=== PATIENT | male | born 1970 | race African-American/Black ===

== ENCOUNTER 2018-03-25 20:11 | Emergency (ER) | payer OTHER | END 2018-03-25 20:35 | disposition home or self-care (01) | LOC: ERS 20:11 | DX: Z02.89 Encounter for other administrative examinations (principal); E03.9 Hypothyroidism, unspecified; I10 Essential (primary) hypertension; F17.210 Nicotine dependence, cigarettes, uncomplicated | CPT/HCPCS: 99283 ==

== ENCOUNTER 2018-08-19 09:02 | Emergency (ER) | payer OTHER ==
--- NOTE | 2018-08-19 09:51 | CT ---
CT OF THE BRAIN WITHOUT CONTRAST: Date: 08/19/18 INDICATION: History of bradycardia and hypothermia, found unresponsive at [facility]. COMPARISON: Prior CT of the brain dated 04/24/16. FINDINGS: No acute infarct, hemorrhage, or hydrocephalus is present. Septum pellucidum and third ventricle are midline. The skull and extracranial soft tissues are unremarkable appearing. IMPRESSION: No acute intracranial abnormality. POS: [facility]
[2018-08-19 10:21] LABS: Hemoglobin 17.2 g/dL (14.0-18.0); Mean Corpuscular HGB CONC 32.1 g/dL (32.0-36.0); Mean Corpuscular Volume 96.6 fL (78.0-98.0); Mean Platelet Volume 8.4 fL (7.4-10.4); Platelet Count 171 thou/uL (130-400); RBC Distribution Width 13.2 % (11.5-14.5); Red Blood Cell (RBC) Count 5.56 mill/uL (4.70-6.10); White Blood Cell (WBC) Count 11.1 thou/uL (4.8-10.8)
--- NOTE | 2018-08-19 10:24 | RAD ---
PORTABLE CHEST 1 VIEW: Date: 08/19/18 Time: 1006 hours HISTORY: Altered mental status. FINDINGS: Comparison made with exam of 05/28/13. The heart size is borderline. No focal areas of consolidation, pneumothoraces, rc pulmonary edema, or pleural effusions. There is elevation of the right hemidiaphragm. IMPRESSION: No acute process. POS: [facility]
[2018-08-19 10:39] LABS: Band 4 % (5-11); Lymphocytes 11 % (21-51); MDiff Complete? YES; Monocytes 10 % (0-10); Neutrophil 74 % (42-75); PLT Morphology Comment Appears Adequate; RBC Morphology Normal
[2018-08-19 10:41] LABS: ALT (SGPT) 31 U/L (8-55); AST (SGOT) 34 U/L (5-34); Acetaminophen Less than 6.0 mcg/mL (10.0-30.0); Albumin 4.3 g/dL (3.5-5.0); Alcohol Less than 10 mg/dL (Less than 10); Alkaline Phosphatase 71 U/L (40-150); Anion Gap 13 mmol/L (10-20); BUN (Urea Nitrogen) 9 mg/dL (8.9-20.6); Bilirubin, Total 0.7 mg/dL (0.2-1.2); CK (CPK) 961 U/L (30-200); Calc. Creatinine Clearance 0 mL/min (70-130); Calcium 9.2 mg/dL (7.8-10.44); Carbon Dioxide 23 mmol/L (22-29); Chloride 109 mmol/L (98-107); Estimated GFR-MDRD Greater than 90; Globulin 3.1 g/dL (2.4-3.5); Glucose 92 mg/dL (70-105); Lipase 9 U/L (8-78); Potassium 5.4 mmol/L (3.5-5.1); Protein, Total 7.4 g/dL (6.0-8.3); Salicylate Less than 8.0 mg/dL (15.0-30.0); Sodium 140 mmol/L (136-145)
[2018-08-19 10:45] LABS: Troponin I Less than 0.010 ng/mL (< 0.028)
[2018-08-19 10:52] LABS: CKMB 15.6 ng/mL (0-6.6)
[2018-08-19 11:43] LABS: Bilirubin Negative (Negative); Blood, Urine Negative (Negative); Clarity CLEAR (Clear); Glucose, Urine (Dipstick) Negative (Negative); Leukocyte Negative (Negative); Nitrite Negative (Negative); Protein, Urine (Dipstick) Negative (Neg-Trace); Specific Gravity, Urine 1.019 (1.002-1.036)
[2018-08-19 11:53] LABS: Medtox Reader # READER 1; THC/Cannabinoid Screen Not Detected (NotDetected)
[2018-08-19 11:54] LABS: Amphetamine Detected (NotDetected); Barbiturates Screen Not Detected (NotDetected); Benzodiazepine Screen Not Detected (NotDetected); Cocaine Metabolite Screen Not Detected (NotDetected); Medtox Control Line Valid? VALID (VALID); Methadone Not Detected (NotDetected); Methamphetamine Detected (NotDetected); Opiate Screen Not Detected (NotDetected); Oxycodone Screen Not Detected (NotDetected); Phencyclidine (PCP) Detected (NotDetected); Tricyclic Screen Not Detected (NotDetected)
== END 2018-08-19 12:14 | disposition home or self-care (01) ==
LOC: ERS 09:02
DX: T68.XXXA Hypothermia, initial encounter (principal); F19.10 Other psychoactive substance abuse, uncomplicated; M62.82 Rhabdomyolysis; I10 Essential (primary) hypertension; E03.9 Hypothyroidism, unspecified; F17.210 Nicotine dependence, cigarettes, uncomplicated; F32.9 Major depressive disorder, single episode, unspecified
CPT/HCPCS: 36415; 36416; 70450; 71045; 80306; 80307; 81003; 82553; 83690; 84443; 84484; 85025; 93005; 96360

== ENCOUNTER 2019-11-26 15:16 | Emergency (ER) | payer OTHER ==
[2019-11-26 17:09] LABS: Hemoglobin 16.8 g/dL (14.0-18.0); Mean Corpuscular HGB CONC 33.7 g/dL (32.0-36.0); Mean Corpuscular Hemoglobin 31.6 pg (27.0-31.0); Mean Corpuscular Volume 93.9 fL (78.0-98.0); Mean Platelet Volume 7.9 fL (7.4-10.4); Platelet Count 221 thou/uL (130-400); RBC Distribution Width 12.2 % (11.5-14.5); Red Blood Cell (RBC) Count 5.33 mill/uL (4.70-6.10); White Blood Cell (WBC) Count 8.3 thou/uL (4.8-10.8)
[2019-11-26 17:31] LABS: ALT (SGPT) 28 U/L (8-55); AST (SGOT) 36 U/L (5-34); Albumin 4.2 g/dL (3.5-5.0); Alkaline Phosphatase 64 U/L (40-110); Anion Gap 14 mmol/L (10-20); BUN (Urea Nitrogen) 8 mg/dL (8.9-20.6); Bilirubin, Total 0.5 mg/dL (0.2-1.2); Calc. Creatinine Clearance 0 mL/min (70-130); Calcium 9.3 mg/dL (7.8-10.44); Carbon Dioxide 23 mmol/L (22-29); Chloride 103 mmol/L (98-107); Estimated GFR-MDRD 84; Globulin 3.3 g/dL (2.4-3.5); Glucose 91 mg/dL (70-105); Lipase 5 U/L (8-78); Potassium 3.9 mmol/L (3.5-5.1); Protein, Total 7.5 g/dL (6.0-8.3); Sodium 136 mmol/L (136-145)
[2019-11-26 17:51] LABS: Band 30 % (5-11); Lymphocytes 16 % (21-51); MDiff Complete? YES; Monocytes 22 % (0-10); Neutrophil 15 % (42-75); Platelet Morphology Comment Appears Adequate; Polychromasia SLIGHT = 2-3 cells (100X) (0-2/hpf); Reactive Lymphocytes 17 % (0-10)
[2019-11-26] MEDS ORDERED: Lidocaine Viscous Sol 2% 15 ml UD Cup ONE (17:59)
[2019-11-26] MEDS ORDERED: Mag-Al 1200 mg/1200 mg/30 ML UDCUP ONE (17:59)
== END 2019-11-26 18:17 | disposition home or self-care (01) ==
LOC: ERS 15:16
DX: R10.13 Epigastric pain (principal); E03.9 Hypothyroidism, unspecified; I10 Essential (primary) hypertension; F32.9 Major depressive disorder, single episode, unspecified; F17.210 Nicotine dependence, cigarettes, uncomplicated; Z79.899 Other long term (current) drug therapy
CPT/HCPCS: 36415; 80053; 83690; 85025; 99284